=== PATIENT | male | born 1970 | race Caucasian/White ===

== ENCOUNTER → 2021-02-24 11:51 | Outpatient (CLI) | payer OTHER, SELFPAY ==
[2021-02-24 19:23] LABS: Add Manual Diff / Slide Review NO; Basophils Absolute Auto 0 /uL (0-100); Basophils Percent Auto 0.9 % (0-2); Eosinophils Absolute Auto 100 /uL (0-450); Eosinophils Percent Auto 1.2 % (2-4); Hematocrit 42.1 % (41-53); Hemoglobin 14.1 g/dL (13.5-17.5); Lymphocytes Absolute Auto 1300 /uL (1100-4500); Lymphocytes Percent Auto 23.8 % (25-40); Mean Corpuscular HGB Conc 33.6 % (30-36); Mean Corpuscular Hemoglobin 31.3 PG (26-34); Mean Corpuscular Volume 93.2 fL (80-100); Monocytes Absolute Auto 400 /uL (0-900); Neutrophils Absolute Auto 3500 /uL (1500-7000); Neutrophils Percent Auto 67.1 % (50-75); Platelet Count 295 X10^3/uL (150-400); Red Blood Cell Count 4.52 X10^6/uL (4.5-5.9); Red Cell Distribution Width 12.5 % (11.6-14.8); White Blood Cell Count 5.3 X10^3/uL (4.5-11.0)
[2021-02-24 19:32] LABS: Alanine Aminotransferase 32 IU/L (<50); Albumin 4.3 g/dL (3.5-5.0); Albumin Globulin Ratio 1.5 (1.0-2.8); Alkaline Phosphatase 52 U/L (38-126); Aspartate Aminotransferase 29 IU/L (17-59); BUN Creatinine Ratio 23.2 (6-22); Bilirubin Total 0.5 mg/dL (0.2-1.3); Blood Urea Nitrogen 16 mg/dL (9-20); Calcium 9.6 mg/dL (8.4-10.2); Carbon Dioxide 27 mmol/L (22-32); Chloride 104 mmol/L (98-107); Cholesterol 179 mg/dL (140-199); Estimated Glomerular Filt Rate > 60.0 mL/min (>60); Globulin 2.8 g/dL (1.7-4.1); Glucose 95 mg/dL (70-100); HDL Cholesterol 79 mg/dL (40-60); HEMOLYSIS < 15 (0-50); LDL Cholesterol Calculated 81 mg/dL (<100); Potassium 4.5 mmol/L (3.4-5.1); Sodium 138 mmol/L (137-145); Total Protein 7.1 g/dL (6.3-8.2); Triglycerides 94 mg/dL (35-150)
[2021-02-24 19:42] LABS: Hemoglobin A1C% w Est Avg Glu 5.1 % (4.0-6.0)
[2021-02-25 09:01] LABS: Prostate Specific Antigen 0.796 ng/mL (0.10-4.00)
== END ==
PROVIDERS: PCP Physician Assistant; Visit Provider Physician Assistant
DX: L40.9 Psoriasis, unspecified (principal); B35.4 Tinea corporis; Z12.11 Encounter for screening for malignant neoplasm of colon; Z12.5 Encounter for screening for malignant neoplasm of prostate
CPT/HCPCS: 80053; 80061; 83036; 84153; 85025

== ENCOUNTER → 2021-09-26 07:26 | Outpatient (CLI) | payer OTHER, SELFPAY ==
[2021-09-26 20:22] LABS: COVID19 - ORCAS (NP or Nasal) Negative (Negative)
== END ==
PROVIDERS: PCP Physician Assistant; Visit Provider Family Medicine
DX: Z20.822 Contact with and (suspected) exposure to COVID-19 (principal)
CPT/HCPCS: C9803; U0003

== ENCOUNTER → 2023-08-06 14:32 | Outpatient (CLI) | payer OTHER, SELFPAY ==
--- NOTE | 2023-08-06 | DI.MRI.S_ITS ---
PROCEDURE: MR LUMBAR SPINE WO CON INDICATIONS: Low back pain TECHNIQUE: Noncontrast sagittal T1 spin echo and T2 fast echo, sagittal STIR, and T2 fast spin echo through the lumbar spine. In cases with scoliosis, additional coronal T2 fast spin echo may be performed. COMPARISON: None. FINDINGS: Image quality: Excellent. Alignment and Curvature: There is normal bony alignment. Bone Marrow: Marrow is of normal overall signal. No acute vertebral body compression fractures. Spinal Cord: Conus medullaris terminates at the L1 level. Visualized cord demonstrates normal signal and size. Paraspinous Soft Tissues: No paravertebral masses. T12-L1: Moderate disc desiccation and height loss. Broad-based disc bulge. Mild facet ligamentum flavum hypertrophy. No canal stenosis. No foraminal narrowing. L1-L2: Moderate disc desiccation and height loss. Broad-based disc bulge. Mild facet ligamentum flavum hypertrophy. No canal stenosis. Mild bilateral foraminal stenosis. L2-L3: Moderate disc desiccation and height loss. Broad-based disc bulge. Moderate facet and ligamentum flavum hypertrophy. Moderate canal stenosis. Mild bilateral foraminal stenosis. There is a small posterior focal high-intensity zone. L3-L4: Moderate disc desiccation and height loss. Moderate facet and ligamentum flavum hypertrophy. There is a central 1.1 cm in lateral diameter broad-based disc bulge present. Moderate canal stenosis. Mild bilateral foraminal stenosis. L4-L5: Moderate disc desiccation and height loss. Severe facet and ligamentum flavum hypertrophy. Moderate canal stenosis. Mild bilateral foraminal narrowing. There is a small posterior focal high-intensity zone. L5-S1: Moderate disc desiccation and height loss. Broad-based disc bulge. Moderate facet ligamentum flavum hypertrophy. No canal stenosis. No foraminal stenosis. IMPRESSION: 1. Multilevel moderate disc desiccation and height loss throughout the lumbar spine. 2. Broad-based disc bulges and facet and ligamentum flavum hypertrophy with resultant moderate canal stenosis at L2-3, L3-4, and L4-5. 3. No significant foraminal narrowing of the lumbar spine. Dictated by: Kyra Pryor M.D. on 08/06/2023 at 15:52 Approved by: Kyra Pryor M.D. on 08/06/2023 at 15:57
== END ==
PROVIDERS: PCP Family Medicine; Referring Provider Family Medicine; Visit Provider Family Medicine
DX: M51.16 Intervertebral disc disorders with radiculopathy, lumbar region (principal); M51.17 Intervertebral disc disorders with radiculopathy, lumbosacral region; M47.26 Other spondylosis with radiculopathy, lumbar region; M47.27 Other spondylosis with radiculopathy, lumbosacral region; M48.061 Spinal stenosis, lumbar region without neurogenic claudication
CPT/HCPCS: 72148